=== PATIENT | male | born 1990 | race Hispanic/Latino ===

== ENCOUNTER 2017-01-30 11:52 | Inpatient (IN) | payer BC, MEDICAID ==
--- NOTE | 2017-01-30 12:33 | ED PDOC ---
HPI: Psych/Substance Abuse Time Seen by Provider: 01/30/17 12:00 Chief Complaint (Nursing): Psychiatric Evaluation Chief Complaint (Provider): Crisis eval History Per: Patient Additional Complaint(s): 26 yo male, PMH of Depression and Suicidal Ideations/Attempts, presents to ED for evaluation of suicidal ideations. Pt reports he plans to cut his wrist. Pt has an appointment with psychiatrist on 02/04; however, does not think he can make it until then. no physical complaints. no homicidal ideations. Pt admits to using cocaine yesterday and smoking weed Past Medical History Reviewed: Nursing Documentation, Vital Signs Vital Signs: Last Vital Signs Temp 98.4 F 01/30/17 12:01 Pulse 80 01/30/17 12:01 Resp 18 01/30/17 12:01 BP 132/66 01/30/17 12:01 Pulse Ox 98 01/30/17 12:06 - Medical History PMH: Anxiety, Bipolar Disorder, Depression, Schizophrenia Denies: Atrial Fibrillation, Cardia Arrhythmia, CHF, Diabetes, Hepatitis, HIV , HTN, Hypercholesterolemia, Mitral Valve Prolapse, Peripheral Edema, Personality Disorder, Chronic Kidney Disease, Seizures, Sexually Transmitted Disease Comment Only: Fractures (left arm) - Surgical History Surgical History: No Surg Hx Denies: Pacemaker - Family History Family History: States: Unknown Family Hx - Living Arrangements Living Arrangements: With Family - Social History Current smoker - smoking cessation education provided: Yes Alcohol: Social Drugs: Cannabis, Cocaine - Immunization History Hx Tetanus Toxoid Vaccination: No Hx Influenza Vaccination: No Hx Pneumococcal Vaccination: No - Home Medications Home Medications: Ambulatory Orders Medication Instructions Recorded No Known Home Med 01/30/17 - Allergies Allergies/Adverse Reactions: Allergies Allergy/AdvReac Type Severity Reaction Status Date / Time divalproex sodium Allergy Mild RASH Verified 01/30/17 12:05 [From Depakote] haloperidol [From Haldol] Allergy Mild RASH Verified 01/30/17 12:04 - Laboratory Results Result Diagrams: 01/30/17 13:53 01/30/17 13:53 - ECG O2 Sat by Pulse Oximetry: 98 Medical Decision Making Medical Decision Making: Pt placed on 1:1 Crisis eval ordered Medical screening exam preformed Pt medically cleared for admission to [facility]. See crisis note. ED OBSERVATION Date of observation admission: 01/30/17 Time of observation admission: 12:30 - Observation admission statement Patient is being placed in observation because:: Time-extensive ED evaluation. - Goals of Observation Goals of observation are:: Results of ED workup, Crisis Evaluation, eventual disposition. - Progress Note Progress Note: 01/30/17 15:41 Patient is resting comfortably in the ED, no apparent distress. Pending results of ED workup. 01/30/17 17:50 Patient is resting comfortably in the ED, no apparent distress. Pending results of ED workup. Disposition - Clinical Impression Clinical Impression: Bipolar 1 disorder - Patient ED Disposition Is Patient to be Admitted: Yes - Disposition Disposition Time: 18:55 Condition: STABLE - Pt Status Changed To: Hospital Disposition Of: Inpatient - Admit Certification Admit to Inpatient:: After my assessment, the patient will require hospitalization for at least two midnights. This is because of the severity of symptoms shown, intensity of services needed, and/or the medical risk in this patient being treated as an outpatient.
[2017-01-30 14:37] LABS: BASO # 0.1 K/uL (0.0-0.2); BASO % 0.8 % (0.0-2.0); EOS # 0.2 K/uL (0.0-0.7); EOS % 1.9 % (0.0-4.0); HEMOGLOBIN 13.6 g/dL (12.0-18.0); LYMPH # 1.9 K/uL (1.0-4.3); LYMPH % 23.3 % (20.0-40.0); MEAN CELL VOLUME 94.1 fl (80.0-94.0); MEAN CORPUSCULAR HEMOGLOBIN 31.7 pg (27.0-31.0); MEAN CORPUSCULAR HGB CONC 33.7 g/dL (33.0-37.0); MEAN PLATELET VOLUME 9.7 fl (7.2-11.7); MONO # 0.6 K/uL (0.0-0.8); NEUT # 5.5 K/uL (1.8-7.0); NRBC % 0.1 % (0.0-0.0); RBC 4.28 Mil/uL (4.40-5.90); RED CELL DISTRIBUTION WIDTH 13.8 % (11.5-14.5); WHITE BLOOD COUNT 8.2 K/uL (4.8-10.8)
[2017-01-30 14:47] LABS: URINE BACTERIA RARE (<OCC); URINE BILIRUBIN NEGATIVE (NEGATIVE); URINE BLOOD NEGATIVE (NEGATIVE); URINE CLARITY SLIGHTY-CLOUDY (Clear); URINE COLOR AMBER (YELLOW); URINE GLUCOSE (UA) NEG (Normal); URINE LEUKOCYTE ESTERASE TRACE Leu/uL (Negative); URINE NITRATE NEGATIVE (NEGATIVE); URINE PROTEIN 100 mg/dL (NEGATIVE)
[2017-01-30 14:49] LABS: ALB/GLOB RATIO 1.7 (1.0-2.1); ALBUMIN 4.6 g/dL (3.5-5.0); ALT/SGPT 35 U/L (21-72); AST/SGOT 21 U/L (17-59); BLOOD UREA NITROGEN 11 mg/dl (9-20); CALCIUM 9.8 mg/dL (8.4-10.2); GFR AFRICAN-AMERICAN > 60; GFR NON-AFRICAN AMERICAN > 60
[2017-01-30 14:52] LABS: SALICYLATE < 1.0 mg/dl
[2017-01-30 14:53] LABS: ACETAMINOPHEN < 10.0 ug/ml (10.0-30.0)
[2017-01-30 14:56] LABS: BARBITURATES, UR NEGATIVE (NEGATIVE); BENZODIAZEPINES, UR NEGATIVE (NEGATIVE); OPIATES, UR NEGATIVE (NEGATIVE); PHENCYCLIDINE, UR NEGATIVE (NEGATIVE)
[2017-01-30 19:01] VITALS: O2SAT 100
[2017-01-30] MEDS ORDERED: Alum-Mag Hydrox-Simethicone Susp (30 mL) PO PRN (20:55)
[2017-01-30] MEDS ORDERED: DiphenhydrAMINE 50 mg/ml Inj IM PRN (20:55)
[2017-01-30] MEDS ORDERED: Magnesium Hydroxide Susp 30 ml UD PO PRN (20:55)
[2017-01-31 09:47] LABS: T4 8.64 ug/dl (5.5-11.0)
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
--- NOTE | 2017-02-02 07:06 | CARD ---
APPROVED REPORT EKG Measurement Heart [id number] <Conclusion> Sinus bradycardia ST elevation, probably due to early repolarization Borderline ECG
--- NOTE | 2017-02-02 14:11 | PCM.PYCHPN ---
Psychiatric Progress Note - Psychiatric Progress Note Patient seen today, length of contact: in treatmet team Patient Chief Complaint: i need to get restarted Problems Identified/Issues Discussed: pt reports he relapsed last thursday for one time. he reports he has been more depressed, thought to hurt self in last few weeks. cut self superficially. could not wait until seeing dr. parra this week and wanted to get restarted on meds. pt feels his neck getting a little stiff, but no trouble breathing. states his mother is supportive and he is hopeful he will get better. was sober for over a year while in [place] Medication Change: Yes ( restart trileptal and geodon) Medical Record Reviewed: Yes Mental Status Examination - Cognitive Function Orientation: Person, Place, Situation, Time Memory: Intact Attention: WNL Concentration: WNL Association: WNL Fund of Knowledge: [facility] Decription of patient's judgement and insights: fair - Mood Mood: Depressed, Anxious - Affect Affect: Broad - Speech Speech: Soft - Formal Thought Process Formal Thought Process: Paranoia - Suicidal Ideation Suicidal Ideation: No Plan: feels safe in the hospital - Homicidal Ideation Homicidal Ideation: No Goal/Treatment Plan - Goal/Treatment Plan Need for Continued Stay: Remain at risks for inpatient hospitalization, Discharge may exacerbated symptoms, Severe functional impairment Progress Toward Problem(s) and Goals/Treatment Plan: bipolar disorder, mixed polysubstance dependence pt to be restarted on meds start cogentin for eps/dystonia and monitor, encourage participation in groups Estimated Date of D/C: 02/05/17
--- NOTE | 2017-02-03 11:45 | PCM.PYCHPN ---
Psychiatric Progress Note - Psychiatric Progress Note Patient seen today, length of contact: discussed with team Patient Chief Complaint: i feel so anxious Problems Identified/Issues Discussed: pt reports his mind is racing and he is anxious. he did not sleep last night and does not feel tired. no longer bothered by feeling his neck is stiff. he has dry mouth with cogentin. pt discussed that meds were working when he took. states seroquel was best med for his sleep, but he gained a lot of weight. pt using his journal to help with his manic/aggressive thoughts. he is feeling safe on the unit. Medication Change: Yes (start ativan. inc geodon) Medical Record Reviewed: Yes Mental Status Examination - Cognitive Function Orientation: Person, Place, Situation, Time Memory: Intact Attention: WNL Concentration: WNL Association: WNL Fund of Knowledge: [facility] Decription of patient's judgement and insights: fair - Mood Mood: Depressed, Anxious - Affect Affect: Broad - Speech Speech: Appropriate - Formal Thought Process Formal Thought Process: Paranoia - Suicidal Ideation Suicidal Ideation: No - Homicidal Ideation Homicidal Ideation: No Goal/Treatment Plan - Goal/Treatment Plan Need for Continued Stay: Remain at risks for inpatient hospitalization, Discharge may exacerbated symptoms, Severe functional impairment Progress Toward Problem(s) and Goals/Treatment Plan: bipolar disorder, mixed polysubstance dependence pt to be restarted on meds and will add ativan for anxiety. will increase the geodon to 120mg continue cogentin for eps/dystonia and monitor- may change to prn in a day or two, encourage participation in groups Estimated Date of D/C: 02/05/17
--- NOTE | 2017-02-04 14:10 | PCM.PYCHPN ---
Psychiatric Progress Note - Psychiatric Progress Note Patient seen today, length of contact: discussed with team Patient Chief Complaint: i feel a little better Problems Identified/Issues Discussed: pt reports poor sleep- did fall asleep but then woke up early and could not return. anxiety is improving. still very irritable and trouble concentrating. no c/o medication side effects. Medication Change: Yes (increase geodon, raise ativan) Medical Record Reviewed: Yes Mental Status Examination - Cognitive Function Orientation: Person, Place, Situation, Time Memory: Intact Attention: WNL Concentration: WNL Association: WNL Fund of Knowledge: [facility] Decription of patient's judgement and insights: fair - Mood Mood: Depressed, Anxious - Affect Affect: Broad - Speech Speech: Appropriate - Formal Thought Process Formal Thought Process: Paranoia - Suicidal Ideation Suicidal Ideation: No - Homicidal Ideation Homicidal Ideation: No Goal/Treatment Plan - Goal/Treatment Plan Need for Continued Stay: Remain at risks for inpatient hospitalization, Discharge may exacerbated symptoms, Severe functional impairment Progress Toward Problem(s) and Goals/Treatment Plan: bipolar disorder, mixed polysubstance dependence pt to be restarted on meds and will increase ativan for anxiety. will increase the geodon to 160mg continue cogentin for eps/dystonia and monitor- may change to prn in a day or two, encourage participation in groups Estimated Date of D/C: 02/05/17
--- NOTE | 2017-02-05 12:04 | PCM.PYCHPN ---
Psychiatric Progress Note - Psychiatric Progress Note Patient seen today, length of contact: discussed with team Patient Chief Complaint: i feel like i'm falling apart Problems Identified/Issues Discussed: pt still with poor sleep. no eps, but now pt c/o some blurred vision, urinary hesitancy, urgency, feeling anxious, trouble concentrating. he is feeling distressed by his symptoms. states seroquel was helpful in the past. Medication Change: Yes (dc geodon, dc cogentin, dc doxepin start seroqeul) Medical Record Reviewed: Yes Mental Status Examination - Cognitive Function Orientation: Person, Place, Situation, Time Memory: Intact Attention: WNL Concentration: WNL Association: WNL Fund of Knowledge: WNL Decription of patient's judgement and insights: fair - Mood Mood: Depressed, Anxious - Affect Affect: Broad, Other (labile) - Speech Speech: Appropriate - Formal Thought Process Formal Thought Process: Hallucinations (sees blurry lines on wall), Paranoia - Suicidal Ideation Suicidal Ideation: No - Homicidal Ideation Homicidal Ideation: No Goal/Treatment Plan - Goal/Treatment Plan Need for Continued Stay: Remain at risks for inpatient hospitalization, Discharge may exacerbated symptoms, Severe functional impairment Progress Toward Problem(s) and Goals/Treatment Plan: bipolar disorder, mixed polysubstance dependence will stop cogentin- may contribute to current urinary/visual symptoms dc doexpin- not effective and dc geodon is not effective will start seroquel as pt reports it was effective in past and may help address his anxiety check bmp and ua and if sodium is wnl will increase trileptal encourage participation in groups Estimated Date of D/C: 02/05/17 - Smoking Cessation Smoking Cessation Initiated: Yes
[2017-02-05 12:06] LABS: ALB/GLOB RATIO 1.6 (1.0-2.1); ALBUMIN 4.6 g/dL (3.5-5.0); ALT/SGPT 33 U/L (21-72); AST/SGOT 24 U/L (17-59); BLOOD UREA NITROGEN 17 mg/dl (9-20); CALCIUM 9.7 mg/dL (8.4-10.2); GFR AFRICAN-AMERICAN > 60; GFR NON-AFRICAN AMERICAN > 60
[2017-02-05 17:07] VITALS: BMI 18.2
--- NOTE | 2017-02-06 12:41 | PCM.PYCHPN ---
Psychiatric Progress Note - Psychiatric Progress Note Patient seen today, length of contact: discussed with team Patient Chief Complaint: i feel on edge Problems Identified/Issues Discussed: pt still with poor sleep. feels restless, anxious, sees shadows and lights when he closes his eyes. he tries to socialize and participate in treatment. less irritable today. Diagnostic Results: sodium is wnl Medication Change: Yes (inc. seroquel, inc. trileptal) Medical Record Reviewed: Yes Mental Status Examination - Cognitive Function Orientation: Person, Place, Situation, Time Memory: Intact Attention: WNL Concentration: WNL Association: [facility] Fund of Knowledge: [facility] Decription of patient's judgement and insights: fair - Mood Mood: Depressed, Anxious - Affect Affect: Broad, Other (labile) - Speech Speech: Appropriate - Formal Thought Process Formal Thought Process: Hallucinations (sees blurry lines on wall), Paranoia - Suicidal Ideation Suicidal Ideation: No - Homicidal Ideation Homicidal Ideation: No Goal/Treatment Plan - Goal/Treatment Plan Need for Continued Stay: Remain at risks for inpatient hospitalization, Discharge may exacerbated symptoms, Severe functional impairment Progress Toward Problem(s) and Goals/Treatment Plan: bipolar disorder, mixed polysubstance dependence increase trielptal and seroquel to address mood symptoms restoril prn for sleep encourage participation in groups Estimated Date of D/C: 02/12/17 - Smoking Cessation Smoking Cessation Initiated: Yes
--- NOTE | 2017-02-07 09:42 | PCM.PYCHPN ---
Psychiatric Progress Note - Psychiatric Progress Note Patient seen today, length of contact: discussed with team Patient Chief Complaint: i finally slept Problems Identified/Issues Discussed: pt reports sleeping very well. wet his bed, but states he does that at home. feels less anxious/tense today. no c/o visual hallucinations. Diagnostic Results: sodium is wnl Medication Change: Yes (start neurontin) Medical Record Reviewed: Yes Mental Status Examination - Cognitive Function Orientation: Person, Place, Situation, Time Memory: Intact Attention: WNL Concentration: WNL Association: WNL Fund of Knowledge: [facility] Decription of patient's judgement and insights: fair - Mood Mood: Depressed, Anxious - Affect Affect: Broad, Other (labile) - Speech Speech: Appropriate - Formal Thought Process Formal Thought Process: No Impairment - Suicidal Ideation Suicidal Ideation: No - Homicidal Ideation Homicidal Ideation: No Goal/Treatment Plan - Goal/Treatment Plan Need for Continued Stay: Remain at risks for inpatient hospitalization, Discharge may exacerbated symptoms, Severe functional impairment Progress Toward Problem(s) and Goals/Treatment Plan: bipolar disorder, mixed polysubstance dependence continue trielptal and seroquel to address mood symptoms continue restoril prn for sleep add neurontin for anxiety/mood encourage participation in groups Estimated Date of D/C: 02/12/17
--- NOTE | 2017-02-08 12:06 | PCM.PYCHPN ---
Psychiatric Progress Note - Psychiatric Progress Note Patient seen today, length of contact: discussed with team Patient Chief Complaint: i am on edge still Problems Identified/Issues Discussed: pt still with improved sleep. continues to have a litany of complaints about his mood/anxiety. states he feels his mood is too up and down. he states he feels all wound up inside despite appearing somewhat calm/sedated on the surface. continues to state that he needs high doses of meds. Diagnostic Results: sodium is wnl Medication Change: Yes (inc neurontin, seroquel) Medical Record Reviewed: Yes Mental Status Examination - Cognitive Function Orientation: Person, Place, Situation, Time Memory: Intact Attention: WNL Concentration: WNL Association: WNL Fund of Knowledge: [facility] Decription of patient's judgement and insights: fair - Mood Mood: Depressed, Anxious - Affect Affect: Broad, Other (labile) - Speech Speech: Appropriate - Formal Thought Process Formal Thought Process: No Impairment - Suicidal Ideation Suicidal Ideation: No - Homicidal Ideation Homicidal Ideation: No Goal/Treatment Plan - Goal/Treatment Plan Need for Continued Stay: Remain at risks for inpatient hospitalization, Discharge may exacerbated symptoms, Severe functional impairment Progress Toward Problem(s) and Goals/Treatment Plan: bipolar disorder, mixed polysubstance dependence continue trielptal and seroquel to address mood symptoms continue restoril but change to standing dose for sleep increase neurontin for anxiety/mood encourage participation in groups Estimated Date of D/C: 02/12/17
[2017-02-08 13:19] LABS: SQUAMOUS EPITHIAL 1 /hpf (0-5); URINE BACTERIA FEW (<OCC); URINE BILIRUBIN NEGATIVE (NEGATIVE); URINE BLOOD NEGATIVE (NEGATIVE); URINE CLARITY CLEAR (Clear); URINE COLOR YELLOW (YELLOW); URINE GLUCOSE (UA) NEG (Normal); URINE LEUKOCYTE ESTERASE NEG Leu/uL (Negative); URINE NITRATE NEGATIVE (NEGATIVE); URINE PROTEIN NEGATIVE (NEGATIVE); URINE UROBILINOGEN 0.2-1.0 mg/dL (0.2-1.0)
--- NOTE | 2017-02-08 18:29 | CP.PCM.CON ---
History of Present Illness - History of Present Illness History of Present Illness: Called by Hospitalist team for medical evaluation of patient. I went to evaluated patient at 14:20 during visiting hours at patient was with mother and asked to be evaluated after 15:00. We returned at 17:30, patient was lying in bed, no acute distress, and refused to be seen at the time because he "did not want to talk". Nurse and MHT aware and patient have been also refusing to take meds after visiting hours as per Nurse. Marcin Blanco PGY2 Past Patient History - Infectious Disease Hx of Infectious Diseases: None - Tetanus Immunizations Tetanus Immunization: Unknown - Past Medical History & Family History Past Medical History?: Yes - Past Social History Alcohol: Social Drugs: Cannabis, Cocaine - CARDIAC Hx Cardiac Disorders: No - PULMONARY Hx Respiratory Disorders: No - NEUROLOGICAL Hx Neurological Disorder: No - HEENT Hx HEENT Problems: No - RENAL Hx Chronic Kidney Disease: No - ENDOCRINE/METABOLIC Hx Endocrine Disorders: No - HEMATOLOGICAL/ONCOLOGICAL Hx Blood Disorders: No - INTEGUMENTARY Hx Dermatological Problems: No - MUSCULOSKELETAL/RHEUMATOLOGICAL Hx Musculoskeletal Disorders: No - GASTROINTESTINAL Hx Gastrointestinal Disorders: No - GENITOURINARY/GYNECOLOGICAL Hx Genitourinary Disorders: No - PSYCHIATRIC Hx Substance Use: Yes - SURGICAL HISTORY Hx Surgeries: No - ANESTHESIA Hx Anesthesia: No Has any member of the family had a problem w/ anesthesia?: No Meds Allergies/Adverse Reactions: Allergies Allergy/AdvReac Type Severity Reaction Status Date / Time divalproex sodium Allergy Mild RASH Verified 01/30/17 12:05 [From Depakote] haloperidol [From Haldol] Allergy Mild RASH Verified 01/30/17 12:04 risperidone [From Risperdal] Allergy RASH Verified 01/30/17 20:13 egg plant Allergy SWELLING Uncoded 01/30/17 20:13 seafood Allergy SWELLING Uncoded 01/30/17 20:13 - Medications Medications: Current Medications Acetaminophen (Tylenol 325mg Tab) 650 mg PO Q4 PRN PRN Reason: Pain, moderate (4-7) Al Hydrox/Mg Hydrox/Simethicone (Maalox Plus 30 Ml) 30 ml PO Q4 PRN PRN Reason: Dyspepsia Last Admin: 02/03/17 05:16 Dose: 30 ml Diphenhydramine HCl (Benadryl) 50 mg IM Q6 PRN PRN Reason: Extrapyramidal S/S Unable PO Gabapentin (Neurontin) 600 mg PO TID REGGIE Lorazepam (Ativan) 2 mg IM Q4 PRN PRN Reason: Anxiety/Agitation,Unable PO Lorazepam (Ativan) 2 mg PO Q4 PRN PRN Reason: Anxiety/Agitation Last Admin: 02/08/17 10:50 Dose: 2 mg Lorazepam (Ativan) 1 mg PO TID [facility] Last Admin: 02/08/17 17:13 Dose: Not Given Magnesium Hydroxide (Milk Of Magnesia) 30 ml PO HS PRN PRN Reason: Constipation Nicotine (Nicoderm Cq) 1 patch TD DAILY [facility] Last Admin: 02/08/17 09:12 Dose: 1 patch Oxcarbazepine (Trileptal) 300 mg PO BID [facility] Last Admin: 02/08/17 17:16 Dose: Not Given Quetiapine Fumarate (Seroquel) 200 mg PO HS [facility] Last Admin: 02/07/17 21:25 Dose: 200 mg Quetiapine Fumarate (Seroquel) 100 mg PO 1300 [facility] Last Admin: 02/08/17 17:16 Dose: Not Given Quetiapine Fumarate (Seroquel) 100 mg PO DAILY [facility] Temazepam (Restoril) 15 mg PO [facility] Results - Vital Signs Recent Vital Signs: Last Vital Signs Temp 96.8 F L 02/08/17 09:00 Pulse 65 02/08/17 09:00 Resp 18 02/08/17 09:00 BP 118/63 02/08/17 09:00 Pulse Ox 100 01/30/17 19:00 - Labs Result Diagrams: 01/30/17 13:53 02/05/17 11:15 Labs: Laboratory Results - last 24 hr 02/08/17 13:00 Urine Color Yellow Urine Clarity Clear Urine pH 5.0 Ur Specific [place] 1.017 Urine Protein Negative Urine Glucose (UA) Neg Urine Ketones Negative Urine Blood Negative Urine Nitrate Negative Urine Bilirubin Negative Urine Urobilinogen 0.2-1.0 Ur Leukocyte Esterase Neg Urine RBC (Auto) 1 Urine Microscopic WBC 5 Ur Squamous Epith Cells 1 Urine Bacteria Few H
--- NOTE | 2017-02-09 12:25 | PCM.PYCHPN ---
Psychiatric Progress Note - Psychiatric Progress Note Patient seen today, length of contact: in treatment team Patient Chief Complaint: i slept perfectly Problems Identified/Issues Discussed: pt pleased with quality and duration of his sleep. he reports continued anxiety and dysphoric mood and became very upset and states he "blanked out" after a meeting with family. he does not recall refusing medications. he does feel a little calmer today. he is focused on asking about the day program at [facility]. he attends groups. denies medication side effects. less focused on somatic complaints today. Diagnostic Results: sodium is wnl Medication Change: No ( ) Medical Record Reviewed: Yes Mental Status Examination - Cognitive Function Orientation: Person, Place, Situation, Time Memory: Intact Attention: WNL Concentration: WNL Association: WNL Fund of Knowledge: WN Decription of patient's judgement and insights: fair - Mood Mood: Anxious - Affect Affect: Broad, Other (labile) - Speech Speech: Appropriate - Formal Thought Process Formal Thought Process: No Impairment - Suicidal Ideation Suicidal Ideation: No - Homicidal Ideation Homicidal Ideation: No Goal/Treatment Plan - Goal/Treatment Plan Need for Continued Stay: Remain at risks for inpatient hospitalization, Discharge may exacerbated symptoms, Severe functional impairment Progress Toward Problem(s) and Goals/Treatment Plan: bipolar disorder, mixed polysubstance dependence continue trielptal and seroquel to address mood symptoms- plan to titrate up seroquel tomorrow if symptoms persist continue restoril at hs for sleep continue neurontin for anxiety/mood encourage participation in groups refer to [email or web address] Estimated Date of D/C: 02/12/17
--- NOTE | 2017-02-10 14:26 | PCM.PYCHPN ---
Psychiatric Progress Note - Psychiatric Progress Note Patient seen today, length of contact: discussed with team Patient Chief Complaint: i feel so unstable Problems Identified/Issues Discussed: pt feels his sleep is improved upset with lowering of ativan, but eventually expressed understanding expressing frustration with his mood being "up and down" and irritable. family worries he appears manic. pt is now agreeing to try lithium he is isolating and not attending groups because of his irritability/anger. Diagnostic Results: sodium is wnl Medication Change: Yes ( ) Medical Record Reviewed: Yes Mental Status Examination - Cognitive Function Orientation: Person, Place, Situation, Time Memory: Intact Attention: WNL Concentration: WNL Association: WNL Fund of Knowledge: WN Decription of patient's judgement and insights: fair - Mood Mood: Anxious - Affect Affect: Broad, Other (labile) - Speech Speech: Appropriate - Formal Thought Process Formal Thought Process: No Impairment - Suicidal Ideation Suicidal Ideation: No - Homicidal Ideation Homicidal Ideation: No Goal/Treatment Plan - Goal/Treatment Plan Need for Continued Stay: Remain at risks for inpatient hospitalization, Discharge may exacerbated symptoms, Severe functional impairment Progress Toward Problem(s) and Goals/Treatment Plan: bipolar disorder, mixed polysubstance dependence continue trielptal and seroquel to address mood symptoms start lithium 150mg tid and watch for side effects. pt aware of r/b/se and requests this medication- if effective can taper off trileptal. continue restoril at hs for sleep continue neurontin for anxiety/mood encourage participation in groups refer to [place] [facility] Estimated Date of D/C: 02/12/17
[2017-02-10] MEDS: Lithium Carbonate 150 MG CAP PO SCH (17:24)
[2017-02-11] MEDS: Lithium Carbonate 150 MG CAP PO SCH ×4 (08:35→17:27)
--- NOTE | 2017-02-11 13:53 | PCM.PYCHPN ---
Psychiatric Progress Note - Psychiatric Progress Note Patient seen today, length of contact: discussed with team Patient Chief Complaint: [birth year] [age] [birth year] Problems Identified/Issues Discussed: pt reports feeling less anxious since starting lithium. feels it affected his sleep. he is attempting to attend groups. more hopeful today. no other c/o side effects. Diagnostic Results: sodium is wnl Medication Change: Yes (inc. seroquel) Medical Record Reviewed: Yes Mental Status Examination - Cognitive Function Orientation: Person, Place, Situation, Time Memory: Intact Attention: WNL Concentration: WNL Association: WNL Fund of Knowledge: WNL Decription of patient's judgement and insights: fair - Mood Mood: Anxious - Affect Affect: Broad, Other (labile) - Speech Speech: Appropriate - Formal Thought Process Formal Thought Process: No Impairment - Suicidal Ideation Suicidal Ideation: No - Homicidal Ideation Homicidal Ideation: No Goal/Treatment Plan - Goal/Treatment Plan Need for Continued Stay: Remain at risks for inpatient hospitalization, Discharge may exacerbated symptoms, Severe functional impairment Progress Toward Problem(s) and Goals/Treatment Plan: bipolar disorder, mixed polysubstance dependence continue trielptal and seroquel- with increase in seroquel at hs for sleep continue lithium 150mg tid for mood continue restoril at hs for sleep continue neurontin for anxiety/mood encourage participation in groups refer to [facility] Estimated Date of D/C: 02/12/17
[2017-02-12] MEDS: Lithium Carbonate 150 MG CAP PO SCH ×3 (09:24→17:54)
--- NOTE | 2017-02-12 10:41 | PCM.PYCHPN ---
Psychiatric Progress Note - Psychiatric Progress Note Patient seen today, length of contact: discussed with team Patient Chief Complaint: i feel energetic today...good energy Problems Identified/Issues Discussed: pt reports his mood is much improved. he reports good sleep. he denies medication side effects. pt attending groups and states he is focusing well now. he is looking forward to discharge. Diagnostic Results: sodium is wnl Medication Change: No ( ) Medical Record Reviewed: Yes Mental Status Examination - Cognitive Function Orientation: Person, Place, Situation, Time Memory: Intact Attention: WNL Concentration: WNL Association: WNL Fund of Knowledge: WN Decription of patient's judgement and insights: fair - Mood Mood: Anxious - Affect Affect: Broad, Other (labile) - Speech Speech: Appropriate - Formal Thought Process Formal Thought Process: No Impairment - Suicidal Ideation Suicidal Ideation: No - Homicidal Ideation Homicidal Ideation: No Goal/Treatment Plan - Goal/Treatment Plan Need for Continued Stay: Remain at risks for inpatient hospitalization, Discharge may exacerbated symptoms, Severe functional impairment Progress Toward Problem(s) and Goals/Treatment Plan: bipolar disorder, mixed polysubstance dependence continue trielptal and seroquel- with increase in seroquel at hs for sleep continue lithium 150mg tid for mood continue restoril at hs for sleep continue neurontin for anxiety/mood encourage participation in groups refer to [place] [facility] and discharge tomorrow Estimated Date of D/C: 02/13/17
[2017-02-13] MEDS: Lithium Carbonate 150 MG CAP PO SCH (08:30)
[2017-02-13 09:14] VITALS: BP 128/69; PULSE 83; RESP 18; TEMP 97.7
--- NOTE | 2017-02-13 10:43 | PCM.PYCHDC ---
Mental Status Examination - Mental Status Examination Orientation: Person, Place, Situation, Time Memory: Intact Mood: Neutral Affect: Broad Speech: Appropriate Attention: WNL Concentration: WNL Association: WNL Fund of Knowledge: WNL Formal Thought Process: No Impairment Description of patient's judgement and insight: fair i/j Psychotic Thoughts and Behaviors: denies a/v hallucinations Suicidal Ideation: No Current Homicidal Ideation?: No Plan: pt denies any suicidal or homicidal thoughts/plans or intent Discharge Summary - Discharge Note Reason for Hospitalization: relapse of substance use, mood lability, suicidal thoughts Psychiatric History (includes Medical, Family, Personal Hx): history of trauma, bipolar disorder, polysubstance dependence Laboratory Data: uds pos for cocaine and cannabinoids Consultations:: List each consultation separately and include: 1. Reason for request. 2. Findings. 3. Follow-up Consultations: seen by hospitalist Summary of Hospital Course include:: 1. Description of specific treatment plan utilized for patients during their course of treatmen. 2. Summarize the time- course for resolution of acute symptoms and/or regressed behaviors. 3. Describe issues identified and worked on during hospitalization. 4. Describe medication utilized. 5. Describe medical problems identified and treated. 6. Reassessment of suicide risk Summary of Hospital Course: pt was admitted to [facility] and oriented to the unit. he was placed on routine safety protocols and he was seen by the medical records clerk. the patient was initially started on geodon, and trileptal which had helped previously. he continue to have anxiety and poor sleep and labile/dysphoric mood. he was having some neck tightness and cogentin was started. pt seemed to have some sensitivity to the anticholineric effects of cogentin and as he had done well with seroquel in the past, we stopped the geodon and cogentin and started seroquel. the dose of seroquel was titrated up to 100/100/300mg. ativan 0.5mg tid was added and pt did well on this dose and poorly when it was raised to 1mg tid. the pt was also placed on restoril at night for his treatment resistant insomnia- did not do well with trazodone, doxepin or remeron. his trileptal was increased to 300mg bid. neurontin was started for pain/anxiety and he tolerated the current dose. finally, as his mood continued to be anxious/dysphoric/manic he was started on a low dose of lithium. overall his mood stabilized on this combintation of medicatyions. and he was able to focus in groups and participate and feel more confident about his future. he was socializing with peers and eager to follow up with dr. parra as an outpatient and possibly start a day program. he was denying any medication side effects at the time of discharge. he was denying any suicidal or homicidal thoughts at the time of discharge. - Final Diagnosis (DSM 5) Condition upon Discharge: STABLE DSM 5: bipolar disorder, mixed cocaine abuse, cannabis abuse ptsd Disposition: HOME/ ROUTINE Follow-up Treatment Plan: follow up with aftercare as directed take medications as prescribed do not use alcohol, tobacco or other illicit substances call 911 if any suicidal or homicidal thoughts attend aa meetings daily. Prescriptions/Medication Reconciliation: Gabapentin [Neurontin] 600 mg PO TID #90 tab Darden Carbonate [Darden Carbonate 150MG] 150 mg PO TID #90 cap LORazepam [Ativan] 0.5 mg PO TID #45 tab Nicotine 21 mg/24 hr [Nicoderm Cq] 1 patch TD DAILY #30 patch OXcarbazepine [Trileptal] 300 mg PO BID #60 tab QUEtiapine [Seroquel] 100 mg PO DAILY #30 tab QUEtiapine [Seroquel] 100 mg PO 1300 #30 tab QUEtiapine [SEROquel] 300 mg PO HS #30 tab Temazepam [Restoril] 15 mg PO HS #30 cap - Smoking Cessation Smoking Cessation Medication prescribed: Yes - Antipsychotic Medications Pt discharged on 2 or more routine antipsychotic medications: No
== END 2017-02-13 14:12 | disposition home or self-care (01) | DRG 885 ==
LOC: H.ER 11:52 → H.ERHOLD 19:09 → H.PSYCH 20:30
PROVIDERS: ADMIT Psychiatry & Neurology Psychiatry; ATTEND Psychiatry & Neurology Psychiatry
PROC: GZHZZZZ Group Psychotherapy (ICD-10-PCS; principal; 2017-01-30)
PROC: GZ58ZZZ Individual Psychotherapy, Cognitive-Behavioral (ICD-10-PCS; 2017-01-30)
DX: F31.60 Bipolar disorder, current episode mixed, unspecified (principal); R45.851 Suicidal ideations; Z91.19 Patient's noncompliance with other medical treatment and regimen; F14.10 Cocaine abuse, uncomplicated; F12.10 Cannabis abuse, uncomplicated; F10.10 Alcohol abuse, uncomplicated; F17.200 Nicotine dependence, unspecified, uncomplicated; F43.10 Post-traumatic stress disorder, unspecified; G47.00 Insomnia, unspecified; H54.42 Blindness, left eye, normal vision right eye; Z81.8 Family history of other mental and behavioral disorders; Z87.442 Personal history of urinary calculi; Z91.410 Personal history of adult physical and sexual abuse; Z91.5 Personal history of self-harm; Z88.9 Allergy status to unspecified drugs, medicaments and biological substances; Z91.013 Allergy to seafood

== ENCOUNTER 2018-02-16 19:43 | Inpatient (IN) | payer BC, MEDICAID ==
[2018-02-16 20:02] VITALS: BMI 17.6
[2018-02-16] MEDS ORDERED: Sodium Chloride 0.9% 1,000 ML IV STA (20:35)
[2018-02-16 21:27] LABS: BASO # 0.1 K/uL (0.0-0.2); EOS # 0.1 K/uL (0.0-0.7); EOS % 1.1 % (0.0-4.0); HEMOGLOBIN 13.1 g/dL (12.0-18.0); LYMPH # 1.4 K/uL (1.0-4.3); LYMPH % 12.4 % (20.0-40.0); MEAN CELL VOLUME 95.1 fl (80.0-94.0); MEAN CORPUSCULAR HGB CONC 33.7 g/dL (33.0-37.0); MEAN PLATELET VOLUME 8.3 fl (7.2-11.7); MONO # 0.7 K/uL (0.0-0.8); MONO % 6.5 % (0.0-10.0); NEUT # 8.7 K/uL (1.8-7.0); RBC 4.1 Mil/uL (4.40-5.90)
[2018-02-16 21:49] LABS: INR 1.1 (0.9-1.2); PARTIAL THROMBOPLASTIN TIME 31.3 Seconds (25.6-37.1)
[2018-02-16 21:51] LABS: ALB/GLOB RATIO 1.5 (1.0-2.1); ALBUMIN 3.9 g/dL (3.5-5.0); ALT/SGPT 24 U/L (21-72); AST/SGOT 33 U/L (17-59); BLOOD UREA NITROGEN 11 mg/dl (9-20); GFR AFRICAN-AMERICAN > 60; GFR NON-AFRICAN AMERICAN > 60
[2018-02-16 22:01] LABS: ACETAMINOPHEN < 10.0 ug/ml (10.0-30.0); SALICYLATE < 1.0 mg/dl
--- NOTE | 2018-02-16 22:11 | ED PDOC ---
HPI: Psych/Substance Abuse Time Seen by Provider: 02/16/18 20:12 Chief Complaint (Nursing): Substance Abuse Chief Complaint (Provider): Substance Abuse History Per: Patient History/Exam Limitations: no limitations Onset/Duration Of Symptoms: Days (x 1) Current Symptoms Are (Timing): Still Present Suicide/Self Injury Attempted (Context): Ingestion Additional Complaint(s): 28 year old male with a history of substance abuse and bipolar disorder presents to the ED for evaluation after a suicide attempt. Patient admits to taking 14 Seroquel, 8 Neurontin and 10 Tylenol at 1 am this morning. States he did because he had been evicted from his parent's home after stealing items to sell so that he would have money to buy crack cocaine. [place] the [place] when he told his mother about his attempt and she brought him to ED. Denies any medical complaints as well as nausea, vomiting, shortness of breath, cough and chest pain. PMD: none provided Past Medical History Reviewed: Historical Data, Nursing Documentation, Vital Signs Vital Signs: Last Vital Signs Temp 98.5 F 02/16/18 20:01 Pulse 86 02/16/18 20:01 Resp 19 02/16/18 20:01 BP 133/85 02/16/18 20:01 Pulse Ox 99 02/16/18 20:01 - Medical History PMH: Anxiety, Bipolar Disorder, Depression, Schizophrenia Denies: Atrial Fibrillation, Cardia Arrhythmia, CHF, Diabetes, Hepatitis, HIV , HTN, Hypercholesterolemia, Mitral Valve Prolapse, Peripheral Edema, Personality Disorder, Chronic Kidney Disease, Seizures, Sexually Transmitted Disease Comment Only: Fractures (left arm) - Surgical History Surgical History: No Surg Hx Denies: Pacemaker - Family History Family History: States: Unknown Family Hx - Social History Drugs: Cocaine - Immunization History Hx Tetanus Toxoid Vaccination: No Hx Influenza Vaccination: No Hx Pneumococcal Vaccination: No - Home Medications Home Medications: Ambulatory Orders Medication Instructions Recorded Unobtainable 02/11/18 - Allergies Allergies/Adverse Reactions: Allergies Allergy/AdvReac Type Severity Reaction Status Date / Time divalproex sodium Allergy Mild RASH Verified 02/11/18 06:37 [From Depakote] haloperidol [From Haldol] Allergy Mild RASH Verified 02/11/18 06:37 risperidone [From Risperdal] Allergy RASH Verified 02/11/18 06:37 egg plant Allergy SWELLING Uncoded 07/12/18 06:37 seafood Allergy SWELLING Uncoded 02/11/18 06:37 Review of Systems ROS Statement: Except As Marked, All Systems Reviewed And Found Negative Psych: Positive for: Suicidal ideation Physical Exam - Reviewed Nursing Documentation Reviewed: Yes Vital Signs Reviewed: Yes - Physical Exam Appears: Positive for: Non-toxic, No Acute Distress Head Exam: Positive for: ATRAUMATIC, NORMAL INSPECTION, NORMOCEPHALIC Skin: Positive for: Normal Color, Warm, Dry Eye Exam: Positive for: EOMI, Normal appearance, PERRL Neck: Positive for: Normal, Painless ROM, Supple Cardiovascular/Chest: Positive for: Regular Rate, Rhythm. Negative for: Murmur Respiratory: Positive for: Normal Breath Sounds. Negative for: Wheezing, Respiratory Distress Gastrointestinal/Abdominal: Positive for: Normal Exam, Soft. Negative for: Tenderness Extremity: Positive for: Normal ROM. Negative for: Deformity Neurologic/Psych: Positive for: Alert, Oriented (x 3). Negative for: Motor/ Sensory Deficits - Laboratory Results Result Diagrams: 02/16/18 21:22 02/16/18 21:22 - ECG O2 Sat by Pulse Oximetry: 99 (RA) Pulse Ox Interpretation: Normal Medical Decision Making Medical Decision Makin:34 Impression: 28 year old male with suicidal attempt and overdose Initial plan: --Labs --Poison control consulted --NS IV 1,000 mls/hr --1:1 observation 23:17 --Labs reveal no clinically significant abnormalities. Patient was evaluated by crisis and will be admitted. --Diagnosis is bipolar disorder and substance abuse disorder --Patient condition is fair and he is stable for psychiatric admission. ---- Scribe Attestation: Documented by Mary Travis and Darvin Dunlap, acting as a scribe for Elia Isbell MD Provider Scribe Attestation: All medical record entries made by the Scribe were at my direction and personally dictated by me. I have reviewed the chart and agree that the record accurately reflects my personal performance of the history, physical exam, medical decision making, and the department course for this patient. I have also personally directed, reviewed, and agree with the discharge instructions and disposition. Disposition - Clinical Impression Clinical Impression: Bipolar disorder - Patient ED Disposition Is Patient to be Admitted: Yes - Disposition Disposition Time: 23:17 Condition: FAIR - Pt Status Changed To: Hospital Disposition Of: Inpatient - Admit Certification Admit to Inpatient:: After my assessment, the patient will require hospitalization for at least two midnights. This is because of the severity of symptoms shown, intensity of services needed, and/or the medical risk in this patient being treated as an outpatient.
[2018-02-16 23:19] VITALS: O2SAT 99
[2018-02-16 23:33] LABS: BARBITURATES, UR NEGATIVE (NEGATIVE)
[2018-02-16 23:43] LABS: BENZODIAZEPINES, UR NEGATIVE (NEGATIVE); OPIATES, UR NEGATIVE (NEGATIVE); PHENCYCLIDINE, UR NEGATIVE (NEGATIVE)
[2018-02-17] MEDS ORDERED: Alum-Mag Hydrox-Simethicone Susp (30 mL) PO PRN (01:54)
[2018-02-17] MEDS ORDERED: Magnesium Hydroxide Susp 30 ml UD PO PRN (01:54)
[2018-02-17] MEDS ORDERED: DiphenhydrAMINE 50 mg/ml Inj IM PRN (01:54)
[2018-02-17 06:40] LABS: HEMOGLOBIN 12.5 g/dL (12.0-18.0); MEAN CELL VOLUME 94.6 fl (80.0-94.0); MEAN CORPUSCULAR HEMOGLOBIN 32.4 pg (27.0-31.0); MEAN CORPUSCULAR HGB CONC 34.2 g/dL (33.0-37.0); RBC 3.86 Mil/uL (4.40-5.90); WHITE BLOOD COUNT 10.7 K/uL (4.8-10.8)
[2018-02-17 07:16] LABS: LDL CHOLESTEROL 76 mg/dL (0-129)
[2018-02-17 07:24] LABS: T4 4.79 ug/dl (5.5-11.0)
[2018-02-17 07:33] LABS: BLOOD UREA NITROGEN 7 mg/dl (9-20); CALCIUM 8.6 mg/dL (8.4-10.2); GFR AFRICAN-AMERICAN > 60; GFR NON-AFRICAN AMERICAN > 60; HDL CHOLESTEROL 34 MG/DL (30-70)
[2018-02-17 07:37] LABS: T3 0.693 nmol/L (1.49-2.60)
--- NOTE | 2018-02-17 09:37 | PCM.PSYCH ---
Initial Psychiatric Evaluation - Initial Psychiatric Evaluation Type of Admission: Voluntary Legal Status: Capacity Chief Complaint (in patient's own words): "I tried to kill myself." Patient's Reaction to Hospitalization: HPI: 28 yo male w/ h/o Bipolar disorder and cocaine abuse, presents s/p suicide attempt by over dose on Seroquel, Neurontin, Tylenol and Advil tablets. He reports that he was kicked out of his home after selling his parents electronics to purchase crack cocaine. He reports feeling depressed, hopeless, w/ sleep/appetite disturbances and continues suicidal ideation. He has not been compliant w/ outpatient treatment or medications. No current AH/VH/ paranoia. PPHx: H/o multiple past psychiatric admissions; most recent admission to [facility] in 01/2018. H/o previous suicide attempts by overdose and self harm by cutting. PMHx: Denies acute medical issues ALL: Depakote (vomiting), Haldol (dystonic rxn), Risperdal (pt does not recall rxn), Eggplant/fish/seafood- True allergy FHx: Aunts w/ Bipolar Disorder SHx: Recently kicked out of his home; uses cocaine weekly; used to drink etoh daily, but last drink was >1 week ago; + Smokes 2ppd Current Medications: Active Medications Generic Name Dose Route Start Last Admin Trade Name Freq PRN Reason Stop Dose Admin Acetaminophen 650 mg 02/17/18 01:54 Tylenol 325mg Tab PO Q4 PRN pain 4-6 Al Hydrox/Mg Hydrox/Simethicone 30 ml 02/17/18 01:54 Maalox Plus 30 Ml PO Q4 PRN Dyspepsia Diphenhydramine HCl 50 mg 02/17/18 01:54 Benadryl IM Q6 PRN Extrapyramidal S/S Unable PO Diphenhydramine HCl 50 mg 02/17/18 01:54 Benadryl PO Q6 PRN Extrapyramidal Symptoms Diphenhydramine HCl 50 mg 02/17/18 01:54 Benadryl PO HS PRN Sleep [place] Carbonate 300 mg 02/17/18 09:45 [place] Carbonate 300mg PO BID REGGIE Lorazepam 1 mg 02/17/18 01:54 Ativan IM Q8 PRN Agitation Lorazepam 1 mg 02/17/18 01:54 Ativan PO Q8 PRN Agitation Magnesium Hydroxide 30 ml 02/17/18 01:54 Milk Of Magnesia PO HS PRN Constipation Nicotine 1 patch 02/17/18 09:00 02/17/18 08:13 Nicoderm Cq TD 1 patch DAILY REGGIE Administration Past Psychiatric History - Past Psychiatric History Previous Treatment History: Inpatient Pertinent Medical Hx (Current Medical&Sleep Prob, Allergies): Allergies Allergy/AdvReac Type Severity Reaction Status Date / Time divalproex sodium Allergy Mild RASH Verified 02/11/18 06:37 [From Depakote] haloperidol [From Haldol] Allergy Mild RASH Verified 02/11/18 06:37 risperidone [From Risperdal] Allergy RASH Verified 02/11/18 06:37 egg plant Allergy SWELLING Uncoded 02/11/18 06:37 seafood Allergy SWELLING Uncoded 02/11/18 06:37 Unobtainable 02/11/18 Review of Systems - Psychiatric Psychiatric: As Per HPI, Abnormal Sleep Pattern, Anhedonia, Anxiety, Change in Appetite, Depression, Difficulty Concentrating, Hopelessness, Irritability, Suicidal Ideation Mental Status Examination - Personal Presentation Personal Presentation: Looks stated age - Affect Affect: Constricted - Motor Activity Motor Activity: Calm - Reliability in Providing Information Reliability in Providing Information: Fair - Speech Speech: Organized - Mood Mood: Depressed - Formal Thought Process Formal Thought Process: No Impairment - Hallucinations/Delusions Additional comments: Denies AH/VH/paranoia/delusions - Obsessions/Compulsions Obsessions: No Compulsions: No - Cognitive Functions Orientation: Person, Place, Situation, Time Sensorium: Alert Attention/Concentration: Attentive Estimate of Intelligence: Average Judgement: Imparied, as evidence by: Poor judgement, Imparied, as evidence by: Lack of insight into illness Memory: Recent intact, as evidence by: Ability to recall events of the day - Risk Risk: Suicidal, Diminished functioning - Strength & Assets Inventory Strength & Assets Inventory: Cooperative - Limitations Limitations: Other (Homelessness, Poverty) DSM 5 DX - DSM 5 DSM 5 Diagnosis: Bipolar Disorder; Cocaine Use Disorder; Alcohol Use Disorder, in early remission - Recommended/Plan of Treatment Treatment Recommendations and Plan of Treatment: Bipolar Disorder; Cocaine Use Disorder; Alcohol Use Disorder, in early remission -Admit to psychiatry unit -Individual and group therapy -Start [place] -Psychoeducation re: dangers of substance abuse -Medicine consult -Disposition planning -Nicotine patch Projected ELOS: 5-10 days Discharge Plan and Discharge Criteria: Discharge when patient is psychiatrically stable - Smoking Cessation Smoking Cessation Initiated: Yes
--- NOTE | 2018-02-17 10:14 | PCM.BM ---
<Jasmine Flemingmariel Conway - Last Filed: 02/17/18 10:12> Treatment Plan Problems - Problems identified on initial assessmt Hopelessness/Helplessness Date Initiated: 02/17/18 Time Initiated: 10:13 Assessment reference: NA Status: Active Treatment assets and liabiliti Patient Assests: cooperative, negotiates basic needs Patient Liabilities: substance abuse - Milieu Protocol Maintain good personal hygiene: daily Encourage regular showers, daily Remind patient to perform daily oral care, daily Assist patient to perform ADL's Maintain personal safety: every shift Educate patient to report safety concerns to staff, every shift Monitor environment for contraband/sharps Medication safety: Monitor for expected outcome, potential side effects: every shift, Assess barriers to learning: every shift, Assess readiness for medication education: every shift <Ailyn Samano - Last Filed: 02/17/18 10:39> - Diagnosis (1) Bipolar disorder Status: Acute Interventions: Medication management, Individual and group therapy, Psychoeducation 02/17/18 10:39 (2) Cocaine abuse Status: Acute Interventions: Medication management, Individual and group therapy, Psychoeducation 02/17/18 10:39 <Tin Valadez - Last Filed: 02/18/18 07:31> Family Contact Family involvement: Family/SO is involved Family contact: Patient declines to allow family contact at present Family contact name: Pt refused. Family contacted how many times per week?: 2 - Goals for Treatment Patient goals for treatment: Pt reported he would like to be restarted on medication to reduce suicidal ideations and visual hallucinations. Discharge/Continuing Care - Education Needs Education Needs: Patient Medication, Patient Diagnosis/Disease Process, Patient Coping Skills, Patient Placement options, Patient Community resources, Patient Aftercare Safety Plan - Discharge Discharge Criteria: Tolerates medication w/o severe side effects, Free of Suicidal thoughts, Free of paranoid thoughts, Free of agitation, Normal sleep pattern, Ability to care for self, No longer exhibiting s/s of withdrawal, Reduction of target symptoms Discharge to:: Jail, Substance Abuse Rehab - Additional Comments 02/17/18 10:00 Pt was seen in treatment team where he reported he was still experiencing passive suicidal ideations and visual hallucinations of shadows moving. Pt reported that he stole electronic from his parents to sell them to buy crack. After this incident he felt guilty and decided to take all of his remaining medications in an attempt to kill himself. Pt offered no questions, comments or complaints at this time. - Treatment Team Participation Discussed with Family/SO: No Was Patient/Family/SO present at Treatment Team Meeting: Yes
--- NOTE | 2018-02-17 11:28 | RAD ---
Date of service: 02/16/2018 HISTORY: admit COMPARISON: 09/12/2014. FINDINGS: LUNGS: No active pulmonary disease. PLEURA: No significant pleural effusion identified, no pneumothorax apparent. CARDIOVASCULAR: Normal. OSSEOUS STRUCTURES: No significant abnormalities. VISUALIZED UPPER ABDOMEN: Normal. OTHER FINDINGS: None. IMPRESSION: No active disease. No significant interval change compared to the prior examination(s).
--- NOTE | 2018-02-17 17:38 | CP.PCM.CON ---
History of Present Illness - History of Present Illness History of Present Illness: medical consult for psychiatric inpatient CC: suicidal attempt and depression HPI: 28 yo male w/ h/o Bipolar disorder and cocaine abuse, presents s/p suicide attempt by over dose on Seroquel, Neurontin, Tylenol and Advil tablets. He reports that he was kicked out of his home after selling his parents electronics to purchase crack cocaine. He reports feeling depressed, hopeless, w/ sleep/appetite disturbances and continues suicidal ideation. He has not been compliant w/ outpatient treatment or medications. denies cp, sob, fevers, n, v, d. PPsychHx: H/o multiple past psychiatric admissions; most recent admission to [facility] in 01/2018. H/o previous suicide attempts by overdose and self harm by cutting. PMHx: no medical issues FH: aunt with bipolar PastSurgicalHistory: none Social History: smokes 2ppd, drugs cocaine Meds: none ALL: Depakote (vomiting), Haldol (dystonic rxn), Risperdal (pt does not recall rxn), Eggplant/fish/seafood- True allergy Review of Systems - Review of Systems All systems: reviewed and no additional remarkable complaints except Review of Systems: except in HPI Past Patient History - Infectious Disease Hx of Infectious Diseases: None - Tetanus Immunizations Tetanus Immunization: Unknown - Past Medical History & Family History Past Medical History?: Yes Past Family History: Reviewed and not pertinent - Past Social History Smoking Status: Heavy Smoker > 10 Cigarettes Daily Drugs: Cannabis, Cocaine Home Situation {Lives}: Homeless - CARDIAC Hx Atrial Fibrillation: No Hx Cardia Arrhythmia: No Hx Congestive Heart Failure: No Hx Hypercholesterolemia: No Hx Hypertension: No Hx Mitral Valve Prolapse: No Hx Pacemaker: No Hx Peripheral Edema: No - PULMONARY Hx Respiratory Disorders: No - NEUROLOGICAL Hx Seizures: No - HEENT Hx HEENT Problems: No - RENAL Hx Chronic Kidney Disease: No - ENDOCRINE/METABOLIC Hx Endocrine Disorders: No - HEMATOLOGICAL/ONCOLOGICAL Hx Human Immunodeficiency Virus (HIV): No - INTEGUMENTARY Hx Dermatological Problems: No - MUSCULOSKELETAL/RHEUMATOLOGICAL Hx Fractures: (left arm) - GASTROINTESTINAL Hx Gastrointestinal Disorders: No - GENITOURINARY/GYNECOLOGICAL Hx Sexually Transmitted Disorders: No - PSYCHIATRIC Hx Anxiety: Yes Hx Bipolar Disorder: Yes Hx Depression: Yes Hx Schizophrenia: Yes - SURGICAL HISTORY Hx Surgeries: No - ANESTHESIA Hx Anesthesia: No Meds Allergies/Adverse Reactions: Allergies Allergy/AdvReac Type Severity Reaction Status Date / Time divalproex sodium Allergy Mild RASH Verified 02/11/18 06:37 [From Depakote] haloperidol [From Haldol] Allergy Mild RASH Verified 02/11/18 06:37 risperidone [From Risperdal] Allergy RASH Verified 02/11/18 06:37 egg plant Allergy SWELLING Uncoded 02/11/18 06:37 seafood Allergy SWELLING Uncoded 02/11/18 06:37 - Medications Medications: Current Medications Acetaminophen (Tylenol 325mg Tab) 650 mg PO Q4 PRN PRN Reason: pain 4-6 Al Hydrox/Mg Hydrox/Simethicone (Maalox Plus 30 Ml) 30 ml PO Q4 PRN PRN Reason: Dyspepsia Diphenhydramine HCl (Benadryl) 50 mg IM Q6 PRN PRN Reason: Extrapyramidal S/S Unable PO Diphenhydramine HCl (Benadryl) 50 mg PO Q6 PRN PRN Reason: Extrapyramidal Symptoms Diphenhydramine HCl (Benadryl) 50 mg PO HS PRN PRN Reason: Sleep [place] Carbonate ([place] Carbonate 300mg) 300 mg PO BID [facility] Last Admin: 02/17/18 12:45 Dose: 300 mg Lorazepam (Ativan) 1 mg IM Q8 PRN PRN Reason: Agitation Lorazepam (Ativan) 1 mg PO Q8 PRN PRN Reason: Agitation Magnesium Hydroxide (Milk Of Magnesia) 30 ml PO HS PRN PRN Reason: Constipation Nicotine (Nicoderm Cq) 1 patch TD DAILY [facility] Last Admin: 02/17/18 08:13 Dose: 1 patch Physical Exam - Constitutional Appears: Well, Unkempt - Head Exam Head Exam: ATRAUMATIC, NORMAL INSPECTION, NORMOCEPHALIC - Eye Exam Eye Exam: Normal appearance Pupil Exam: NORMAL ACCOMODATION - ENT Exam ENT Exam: Mucous Membranes Moist - Respiratory Exam Respiratory Exam: Clear to Auscultation Bilateral, NORMAL BREATHING PATTERN. absent: Accessory Muscle Use, Rales, Rhonchi, Wheezes - Cardiovascular Exam Cardiovascular Exam: REGULAR RHYTHM, +S1, +S2. absent: Systolic Murmur - GI/Abdominal Exam GI & Abdominal Exam: Normal Bowel Sounds, Soft. absent: Organomegaly, Tenderness - Extremities Exam Extremities exam: Positive for: tenderness Additional comments: redness inner aspect right knee no rash tender at spot - Neurological Exam Neurological exam: Alert, Oriented x3 - Psychiatric Exam Psychiatric exam: Normal Affect - Skin Skin Exam: Normal Color Results - Vital Signs Recent Vital Signs: Last Vital Signs Temp 98.1 F 02/17/18 16:18 Pulse 57 L 02/17/18 16:18 Resp 20 02/17/18 16:18 BP 118/69 02/17/18 16:18 Pulse Ox 99 02/17/18 03:24 - Labs Result Diagrams: 02/17/18 05:40 02/17/18 05:40 Labs: Laboratory Results - last 24 hr 02/16/18 02/16/18 02/16/18 21:22 21:22 21:22 WBC 11.0 H RBC 4.10 L Hgb 13.1 Hct 39.0 MCV 95.1 H MCH 32.0 H MCHC 33.7 RDW 14.0 Plt Count 294 MPV 8.3 Neut % (Auto) 79.0 H Lymph % (Auto) 12.4 L [place] % (Auto) 6.5 Eos % (Auto) 1.1 Baso % (Auto) 1.0 Neut # (Auto) 8.7 H Lymph # (Auto) 1.4 [place] # (Auto) 0.7 Eos # (Auto) 0.1 Baso # (Auto) 0.1 PT 12.0 INR 1.1 APTT 31.3 Sodium 141 Potassium 3.3 L Chloride 105 Carbon Dioxide 25 Anion Gap 14 BUN 11 Creatinine 0.9 Est GFR ( Amer) > 60 Est GFR (Non-Af Amer) > 60 Random Glucose 109 Hemoglobin A1c Calcium 9.0 Magnesium 1.8 Total Bilirubin 0.4 AST 33 ALT 24 Alkaline Phosphatase 43 Total Protein 6.5 Albumin 3.9 Globulin 2.6 Albumin/Globulin Ratio 1.5 Triglycerides Cholesterol LDL Cholesterol Direct HDL Cholesterol Thyroxine (T4) Total T3 TSH 3rd Generation Salicylates Urine Opiates Screen Urine Methadone Screen Acetaminophen Ur Barbiturates Screen Ur Phencyclidine Scrn Ur Amphetamines Screen U Benzodiazepines Scrn U Oth Cocaine Metabols U Cannabinoids Screen Alcohol, Quantitative < 10 RPR 02/16/18 02/16/18 02/17/18 21:22 22:40 05:40 WBC RBC Hgb Hct MCV MCH MCHC RDW Plt Count MPV Neut % (Auto) Lymph % (Auto) [place]ack[place] % (Auto) Eos % (Auto) Baso % (Auto) Neut # (Auto) Lymph # (Auto) [place]ack[place] # (Auto) Eos # (Auto) Baso # (Auto) PT INR APTT Sodium 142 Potassium 3.3 L Chloride 107 Carbon Dioxide 25 Anion Gap 13 BUN 7 L Creatinine 0.7 L Est GFR ( Amer) > 60 Est GFR (Non-Af Amer) > 60 Random Glucose 99 Hemoglobin A1c Calcium 8.6 Magnesium Total Bilirubin AST ALT Alkaline Phosphatase Total Protein Albumin Globulin Albumin/Globulin Ratio Triglycerides 87 Cholesterol 135 LDL Cholesterol Direct 76 HDL Cholesterol 34 Thyroxine (T4) 4.79 L Total T3 0.693 L TSH 3rd Generation 1.16 Salicylates < 1.0 Urine Opiates Screen Negative Urine Methadone Screen Negative Acetaminophen < 10.0 L Ur Barbiturates Screen Negative Ur Phencyclidine Scrn Negative Ur Amphetamines Screen Negative U Benzodiazepines Scrn Negative U Oth Cocaine Metabols Positive H U Cannabinoids Screen Positive H Alcohol, Quantitative RPR 02/17/18 02/17/18 02/17/18 05:40 05:40 05:40 WBC 10.7 RBC 3.86 L Hgb 12.5 Hct 36.5 MCV 94.6 H MCH 32.4 H MCHC 34.2 RDW 14.0 Plt Count 288 MPV Neut % (Auto) Lymph % (Auto) [place]ack[place] % (Auto) Eos % (Auto) Baso % (Auto) Neut # (Auto) Lymph # (Auto) [place] # (Auto) Eos # (Auto) Baso # (Auto) PT INR APTT Sodium Potassium Chloride Carbon Dioxide Anion Gap BUN Creatinine Est GFR ( Amer) Est GFR (Non-Af Amer) Random Glucose Hemoglobin A1c 5.1 Calcium Magnesium Total Bilirubin AST ALT Alkaline Phosphatase Total Protein Albumin Globulin Albumin/Globulin Ratio Triglycerides Cholesterol LDL Cholesterol Direct HDL Cholesterol Thyroxine (T4) Total T3 TSH 3rd Generation Salicylates Urine Opiates Screen Urine Methadone Screen Acetaminophen Ur Barbiturates Screen Ur Phencyclidine Scrn Ur Amphetamines Screen U Benzodiazepines Scrn U Oth Cocaine Metabols U Cannabinoids Screen Alcohol, Quantitative RPR Nonreactive Assessment & Plan - Assessment and Plan (Free Text) Assessment: HPI: 28 yo male w/ h/o Bipolar disorder and cocaine abuse, presents s/p suicide attempt by over dose on Seroquel, Neurontin, Tylenol and Advil tablets. 1. Suicidal attempt and ideation/depression management by Psych. 2. Cocaine abuse 3. Hypokalemia repleted check bmp in am 4. Redness/tenderness right knee - monitor clinically repeat exam in 1-2 days tylenol prn
[2018-02-17] MEDS ORDERED: Potassium Chloride 20 mEq ER Tab PO ONE (17:57)
[2018-02-18 06:53] LABS: BLOOD UREA NITROGEN 6 mg/dl (9-20); CALCIUM 8.9 mg/dL (8.4-10.2); GFR AFRICAN-AMERICAN > 60; GFR NON-AFRICAN AMERICAN > 60
--- NOTE | 2018-02-18 10:16 | PCM.PYCHPN ---
Psychiatric Progress Note - Psychiatric Progress Note Patient seen today, length of contact: Patient evaluated, case discussed with team, chart reviewed Patient Chief Complaint: "I'm depressed." Problems Identified/Issues Discussed: Patient reports that he continues to feel depressed. He is participating in groups and therapy appropriately. He denies acute AH/VH/SI/HI. Psychoeducation provided on the dangers of substance abuse. We discussed how his feelings of hopelessness cause him to relapse on drugs and alcohol. +Sleep/ appetite disturbances. +feelings of hopelessness. Medication Change: No Medical Record Reviewed: Yes Consults ordered or reviewed: Medicine consult Mental Status Examination - Cognitive Function Orientation: Person, Place, Situation, Time Memory: Intact Attention: WNL Concentration: WNL Association: WNL Fund of Knowledge: [facility] Decription of patient's judgement and insights: Poor I/J - Mood Mood: Depressed - Affect Affect: Constricted - Formal Thought Process Formal Thought Process: No Impairment Psychotic Thoughts and Behaviors: No AH/VH/paranoia/delusions - Suicidal Ideation Suicidal Ideation: No - Homicidal Ideation Homicidal Ideation: No Goal/Treatment Plan - Goal/Treatment Plan Need for Continued Stay: Severe depression anxiety, Discharge may exacerbated symptoms Progress Toward Problem(s) and Goals/Treatment Plan: Bipolar Disorder; Cocaine Use Disorder; Alcohol Use Disorder, in early remission -Individual and group therapy -Continue [place] -Psychoeducation re: dangers of substance abuse -Medicine consult -Disposition planning -Nicotine patch Estimated Date of D/C: 02/23/18 - Smoking Cessation Smoking Cessation Initiated: Yes
[2018-02-18 11:18] LABS: SQUAMOUS EPITHIAL < 1 /hpf (0-5); URINE BILIRUBIN NEGATIVE (NEGATIVE); URINE BLOOD NEGATIVE (NEGATIVE); URINE CLARITY CLEAR (Clear); URINE COLOR YELLOW (YELLOW); URINE GLUCOSE (UA) NEG (Normal); URINE LEUKOCYTE ESTERASE NEG Leu/uL (Negative); URINE PROTEIN NEGATIVE (NEGATIVE); URINE UROBILINOGEN 0.2-1.0 mg/dL (0.2-1.0)
--- NOTE | 2018-02-19 08:54 | PCM.PYCHPN ---
Psychiatric Progress Note - Psychiatric Progress Note Patient seen today, length of contact: Patient evaluated, case discussed with team, chart reviewed Patient Chief Complaint: "I'm depressed." Problems Identified/Issues Discussed: Patient reports that he continues to feel depressed w/ feelings of hopelessness. He is participating in groups and therapy appropriately. He denies acute AH/VH/SI/HI. Psychoeducation provided on the dangers of substance abuse. We discussed continued titration of [place]. Medication Change: Yes (Increase [place]) Medical Record Reviewed: Yes Consults ordered or reviewed: Medicine consult Mental Status Examination - Cognitive Function Orientation: Person, Place, Situation, Time Memory: Intact Attention: WNL Concentration: WNL Association: WNL Fund of Knowledge: [facility] Decription of patient's judgement and insights: Poor I/J - Mood Mood: Depressed - Affect Affect: Constricted - Formal Thought Process Formal Thought Process: No Impairment Psychotic Thoughts and Behaviors: No AH/VH/paranoia/delusions - Suicidal Ideation Suicidal Ideation: No - Homicidal Ideation Homicidal Ideation: No Goal/Treatment Plan - Goal/Treatment Plan Need for Continued Stay: Severe depression anxiety, Discharge may exacerbated symptoms Progress Toward Problem(s) and Goals/Treatment Plan: Bipolar Disorder; Cocaine Use Disorder; Alcohol Use Disorder, in early remission -Individual and group therapy -Increase [place] to 300 mg PO TID; will check Li level -Psychoeducation re: dangers of substance abuse -Medicine consult -Disposition planning -Nicotine patch Estimated Date of D/C: 02/23/18
--- NOTE | 2018-02-20 10:29 | PCM.PYCHPN ---
Psychiatric Progress Note - Psychiatric Progress Note Patient seen today, length of contact: Patient evaluated, case discussed with team, chart reviewed Patient Chief Complaint: pt has been less depressed and less anxious but still with feelings of hopelessness .denies suicidal ideation.tolerating lithium well Medication Change: Yes (Increase [place]) Medical Record Reviewed: Yes Mental Status Examination - Cognitive Function Orientation: Person, Place, Situation, Time Memory: Intact Attention: WNL Concentration: WNL Association: WNL Fund of Knowledge: WNL - Mood Mood: Depressed - Affect Affect: Constricted - Formal Thought Process Formal Thought Process: No Impairment - Suicidal Ideation Suicidal Ideation: No - Homicidal Ideation Homicidal Ideation: No Goal/Treatment Plan - Goal/Treatment Plan Need for Continued Stay: Severe depression anxiety, Discharge may exacerbated symptoms Progress Toward Problem(s) and Goals/Treatment Plan: will continue to titrate lithium by checking level in am. d/c planning as per dr hunter Estimated Date of D/C: 02/23/18
--- NOTE | 2018-02-21 14:40 | PCM.PYCHPN ---
Psychiatric Progress Note - Psychiatric Progress Note Patient seen today, length of contact: Patient evaluated, case discussed with team, chart reviewed Patient Chief Complaint: Pt has been less depressed less anxious and responding well to meds and denies suicidal ideation .pt is tolerating meds well Medication Change: Yes Medical Record Reviewed: Yes Mental Status Examination - Cognitive Function Orientation: Person, Place, Situation, Time Memory: Intact Attention: WNL Concentration: WNL Association: WNL Fund of Knowledge: WNL - Mood Mood: Depressed - Affect Affect: Constricted - Formal Thought Process Formal Thought Process: No Impairment - Suicidal Ideation Suicidal Ideation: No - Homicidal Ideation Homicidal Ideation: No Goal/Treatment Plan - Goal/Treatment Plan Need for Continued Stay: Severe depression anxiety, Discharge may exacerbated symptoms Progress Toward Problem(s) and Goals/Treatment Plan: will continue to titrate lithium by checking level in am. d/c planning as per dr hunter Estimated Date of D/C: 02/23/18
[2018-02-22 05:56] VITALS: BP 114/68; PULSE 53; RESP 19; TEMP 97.2
--- NOTE | 2018-02-22 11:25 | PCM.PYCHDC ---
Mental Status Examination - Mental Status Examination Orientation: Person, Place, Situation, Time Memory: Intact Mood: Neutral Affect: Broad Speech: Appropriate Attention: WNL Concentration: WNL Association: WNL Fund of Knowledge: WNL Formal Thought Process: No Impairment Description of patient's judgement and insight: partial insight fair judgment Psychotic Thoughts and Behaviors: pt denied any current perceptual disturbances, non elicited Suicidal Ideation: No Current Homicidal Ideation?: No Discharge Summary - Discharge Note Reason for Hospitalization: 28 yo male w/ h/o Bipolar disorder and cocaine abuse, presents s/p suicide attempt by over dose on Seroquel, Neurontin, Tylenol and Advil tablets. He reports that he was kicked out of his home after selling his parents electronics to purchase crack cocaine. He reports feeling depressed, hopeless, w/ sleep/appetite disturbances and continues suicidal ideation. He has not been compliant w/ outpatient treatment or medications. No current AH/VH/ paranoia. Laboratory Data: Abnormal Lab Results 02/22/18 05:[address] 0.5 L Consultations:: List each consultation separately and include: 1. Reason for request. 2. Findings. 3. Follow-up Summary of Hospital Course include:: 1. Description of specific treatment plan utilized for patients during their course of treatmen. 2. Summarize the time- course for resolution of acute symptoms and/or regressed behaviors. 3. Describe issues identified and worked on during hospitalization. 4. Describe medication utilized. 5. Describe medical problems identified and treated. 6. Reassessment of suicide risk Summary of Hospital Course: covering psychiatrist/ for 02/22/18 on reviewing the notes, pt was started on lithium, it was uptitrated to 300mg tid , lithium level noted to be 0.5 pt was provided with group and supportive therapy on evaluation pt presented with stable mood and bright affect, no reported side effects of lithium brief motivational therapy was provided in reference to cannabis use ,pt motivated to attend [facility] outpatient program on discharge patient mental status was stable, patient denied any current suicidal or homicidal ideation denied perceptual disturbances, non elicited - Final Diagnosis (DSM 5) Condition upon Discharge: FAIR DSM 5: cocaine induced mood disorder with depressive features cocaine use disorder bipolar disorder Disposition: HOME/ ROUTINE Prescriptions/Medication Reconciliation: [address] Carbonate [[address] Carbonate 300MG] 300 mg PO TID 15 Days #45 cap - Antipsychotic Medications Pt discharged on 2 or more routine antipsychotic medications: No
== END 2018-02-22 15:30 | disposition home or self-care (01) | DRG 895 ==
LOC: H.ER 19:43 → H.ERHOLD 23:11 → H.STEP 02-17 01:46
PROVIDERS: ADMIT Psychiatry & Neurology Psychiatry; ATTEND Psychiatry & Neurology Psychiatry
PROC: GZHZZZZ Group Psychotherapy (ICD-10-PCS; principal; 2018-02-16)
PROC: HZ56ZZZ Individual Psychotherapy for Substance Abuse Treatment, Psychoeducation (ICD-10-PCS; 2018-02-16)
PROC: GZ56ZZZ Individual Psychotherapy, Supportive (ICD-10-PCS; 2018-02-16)
PROC: HZ57ZZZ Individual Psychotherapy for Substance Abuse Treatment, Motivational Enhancement (ICD-10-PCS; 2018-02-16)
DX: F14.94 Cocaine use, unspecified with cocaine-induced mood disorder (principal); R45.851 Suicidal ideations; Z91.14 Patient's other noncompliance with medication regimen; E87.6 Hypokalemia; Z91.19 Patient's noncompliance with other medical treatment and regimen; Z59.0 Homelessness; Z91.013 Allergy to seafood; F31.9 Bipolar disorder, unspecified; Z91.018 Allergy to other foods; F17.210 Nicotine dependence, cigarettes, uncomplicated